=== PATIENT | male | born 1940 | race Caucasian/White ===

== ENCOUNTER → 2016-09-24 12:01 | Outpatient (CLI) | payer MEDICARE, OTHER ==
[2015-03-14 09:16] VITALS: BMI 27.2
[~2016-09-24 12:01] MED LIST: ALDACTONE25 MG PO; ALEVE220 MG PO; BAYER CHEWABLE81 MG PO; CARDIZEM 90 MG90 MG PO; COLACE100 MG PO; CORDARONE200 MG PO; COREG 3.1253.125 MG NG; CRANBERRY475 MG; CRANBERRY475 MG PO; FLOMAX0.4 MG PO; HEMOCYTE PLUS C1 CAP PO; HYDROCHLOROTH12.5 M1 PO; HYDROCODONE-APA1 TAB PO; K-DUR20 MEQ PO; LASIX20 MG PO; LASIX40 MG PO; LEXAPRO10 MG PO; LISINOPRIL10 MG PO; MELATONIN 3 MG1 TAB PO; NIASPAN500 MG PO; NORVASC10 MG PO; NORVASC5 MG PO; PACERONE400 MG PO; ROBAXIN500 MG PO; RYTHMOL SR225 MG PO; SENNA8.6 MG PO; SYNTHROID50 MCG PO; ULTRAM50 MG PO; VITAMIN B-122500 MCG PO; XARELTO20 MG PO
== END | disposition home or self-care (01) ==
LOC: D.RAD 08:45
DX: J90 Pleural effusion, not elsewhere classified (principal)

== ENCOUNTER → 2019-03-28 13:10 | Outpatient (CLI) | payer MEDICARE, OTHER ==
[2015-03-14 09:16] VITALS: BMI 27.2
--- NOTE | 2019-03-31 09:07 | EC ---
PATIENT:LULA CRAWFORD DATE OF SERVICE: 03/28/19 SEX: M MEDICAL RECORD: [id number] DATE OF : 36 LOCATION:[facility] AGE OF PATIENT: 79 ADMISSION DATE: 03/28/19 REFERRING PHYSICIAN: INTERPRETING PHYSICIAN: JOEY MICHELLE MD ECHOCARDIOGRAM REPORT ECHO CHARGES 4 ECHO COMPLETE Date: 03/28/19 CLINICAL DIAGNOSIS: HX OF CARDIOMYOPATHY,AORTIC AND MITRAL REGURG HX CABG ECHOCARDIOGRAPHIC MEASUREMENTS (adult normal given) AC root (d.<3.7cm) 3.7 cm LV Septum d (<1.2 cm> 1.4 cm Valve Excursion 1.9 cm LV Septum (systole) 1.4 cm Left Atria (s.<4.0cm> 4.9 cm LVPW d(<1.2cm) 1.4 cm RV (d.<2.3cm) 3.9 cm LVPW (sytole) 1.7 cm LV diastole(<5.6CM) 5.9 cm MV E-F(>70mm/sec) cm LV systole 4.1 cm LVOT Diameter 1.8 cm MV exc.(>10mm) 1.8 cm Est.ejection fraction (50-75%) % DOPPLER: LVIT cm/sec A 90.0 cm/sec E 40.0 cm/sec LA cm/sec RVSP 35 mmHg LVOT 103 cm/sec AOP1/2T 857 m/s Asc. Ao 179 cm/sec RVOT 85 cm/sec RA cm/sec PA 91 cm/sec AV Gradient Peak 13.47mmHg AV Mean 6.23 mmHg AV Area 2.1 cm MV Gradient Peak 3.59 mmHg MV Mean 1.37 mmHg MV Area cm COMMENTS: Web Content Director: 2 DEEPAK ENGLISH Professor Criminal Justice: 3 Dr. Dodd TAPE# PACS Pericardial Effusion N DATE OF SERVICE: Adequate 2D, color flow, spectral Doppler, and M-mode. LVH is present. LV internal dimension is normal. Wall motion is normal. EF is greater than or equal to 55%. Aortic valve is tricuspid. No evidence of stenosis by Doppler interrogation. Mild AI by color flow imaging. Left atrium is dilated at 4.9 cm. Mitral valve shows no prolapse. Mild MR. Right-sided chambers are grossly normal. Mild TR. ECHOCARDIOGRAM REPORT [id number] LULA CRAWFORD TRANSINT:[id number] Voice Confirmation ID: [id number] DOCUMENT ID: [id number] JOEY MICHELLE MD at 0907 CC: [id number] DICTATION DATE: 03/30/19 1316 STENOTYPE MACHINE OPERATOR: 03/30/19 1355 DEP CLI 03/28/19 [place] [id number] [place] [id number]
== END | disposition home or self-care (01) ==
LOC: D.HCCECHO 13:10
PROVIDERS: ATTEND Internal Medicine Interventional Cardiology
DX: I42.9 Cardiomyopathy, unspecified (principal)

== ENCOUNTER → 2019-09-18 09:33 | Outpatient (CLI) | payer MEDICARE, OTHER ==
[2015-03-14 09:16] VITALS: BMI 27.2
[2019-09-18 10:10] LABS: CREATININE - SERUM 1.7 mg/dL (0.6-1.3)
== END | disposition home or self-care (01) ==
LOC: D.LAB 09:33 → D.CT 10:30
PROVIDERS: ATTEND Internal Medicine Cardiovascular Disease
DX: I71.4 Abdominal aortic aneurysm, without rupture (principal)

== ENCOUNTER → 2020-01-25 08:45 | Outpatient (CLI) | payer MEDICARE, OTHER ==
[2015-03-14 09:16] VITALS: BMI 27.2
--- NOTE | 2020-01-26 08:19 | EC ---
PATIENT:LULA CRAWFORD DATE OF SERVICE: 01/25/20 SEX: M MEDICAL RECORD: [id number] DATE OF : 36 [facility] AGE OF PATIENT: 79 ADMISSION DATE: 01/25/20 REFERRING PHYSICIAN: INTERPRETING PHYSICIAN: JOEY MICHELLE MD ECHOCARDIOGRAM REPORT ECHO CHARGES 4 ECHO COMPLETE Date: 01/25/20 CLINICAL DIAGNOSIS: AFIB/HEART MURMUR/ANGINA HX OF AI/MR ECHOCARDIOGRAPHIC MEASUREMENTS (adult normal given) AC root (d.<3.7cm) 4.0 cm LV Septum d (<1.2 cm> 1.9 cm Valve Excursion 1.8 cm LV Septum (systole) 2.1 cm Left Atria (s.<4.0cm> 4.7 cm LVPW d(<1.2cm) 1.4 cm RV (d.<2.3cm) 3.5 cm LVPW (sytole) 2.0 cm LV diastole(<5.6CM) 6.2 cm MV E-F(>70mm/sec) cm LV systole 3.1 cm LVOT Diameter 1.9 cm MV exc.(>10mm) 2.0 cm Est.ejection fraction (50-75%) % DOPPLER: LVIT cm/sec A 76.0 cm/sec E 54.0 cm/sec LA cm/sec RVSP 32 mmHg LVOT 107 cm/sec AOP1/2T m/s Asc. Ao 226 cm/sec RVOT 80 cm/sec RA cm/sec PA 100 cm/sec AV Gradient Peak 20.47mmHg AV Mean 12.06mmHg AV Area 1.4 cm MV Gradient Peak 4.15 mmHg MV Mean 1.11 mmHg MV Area cm COMMENTS: Um Specialist: 2 DEEPAK ENGLISH Director Market Intelligence: 3 Dr. Dodd TAPE# PACS Pericardial Effusion N DATE OF SERVICE: Adequate 2D, color flow imaging, spectral Doppler, and M-Mode. LVH is present. LV internal dimension is normal. Wall motion is normal. EF is greater than or equal to 55%. Aortic valve is sclerotic. No evidence of stenosis by Doppler interrogation. Left atrium is dilated at 4.7 cm. Mitral valve shows no prolapse. Mild MR. Right-sided chambers are grossly normal. Mild TR. ECHOCARDIOGRAM REPORT [id number] LULA CRAWFORD TRANSINT:[id number] Voice Confirmation ID: [id number] DOCUMENT ID: [id number] JOEY MICHELLE MD at 0819 CC: [id number] DICTATION DATE: 01/25/20 1515 DIE TURNER: 01/25/20 2030 DEP CLI 01/25/20 [place] [id number] [place] [id number]
== END | disposition home or self-care (01) ==
LOC: D.HCCECHO 08:45
PROVIDERS: ATTEND Internal Medicine Cardiovascular Disease
DX: I25.10 Atherosclerotic heart disease of native coronary artery without angina pectoris (principal); I48.91 Unspecified atrial fibrillation

== ENCOUNTER 2020-02-07 06:54 | Day surgery (SDC) | payer MEDICARE, OTHER ==
[~2020-02-07] VITALS: Ht 195.6 cm; Wt 106.5 kg
--- NOTE | ~2020-02-07 | HEMODYNAMI ---
PATIENT:LULA CRAWFORD MEDICAL RECORD: [id number] : 36 LOCATION:D.CAT ADMISSION DATE: 02/07/20 Generatedon:02/07/20209:13 Patient name: LULA CRAWFORD Patient #: [id number] SSN: [id number] : 1940 Date of study: 02/07/2020 Page: Of Hemodynamic Procedure Report Patient Data Patient Demographics Procedure consent was obtained First Name: LULA Gender: Male Last Name: YVETTE : 1940 Middle Initial: W Age: 79 year(s) Patient #: [id number] Race: SSN: [id number] Additional ID: [id number] Contact details Address: [address] [place] [address] State: [place] City: [place] Zip code: [address] Past Medical History Performed procedures and imaging results Date Procedure Procedure Results Comments 01/25/2020 Stress testing Positive->Intermediate with SPECT MPI risk Allergies: No known allergies Admission Admission Data Admission Date: 02/07/2020 Admission Time: 6:54 Arrival Date: 02/07/2020 Arrival Time: 0:00 Admit Source: Other Insurance Payor: Medicare [facility] #: [id number] Height (in.): 77 BSA: 2.39 (m2) Height (cm.): 195.58 BMI: 27.83 (kg/m2) Weight (lbs.): 234.68 Weight (kg.): 106.45 Lab Results Lab Result Date: 02/07/2020 Lab Result Time: 0:00 Biochemistry Name Units Result Min Max BUN mg/dl 32 --(----)-* 7 18 Creatinine mg/dl 1.7 --(----)-* 0.6 1.3 eGFR ml/min 41 *-(----)-- 90 120 NONAFRICAN CBC Name Units Result Min Max Hematocrit % 40.8 -*(----)-- 42 54 Hemoglobin g/dl 13 -*(----)-- 13.5 17.5 Procedure Procedure Types Cath Procedure Diagnostic Procedure [facility] w/Coronaries Sedation Charges Moderate Sedation up to 15 minutes Procedure Description Procedure Date Procedure Date: 02/07/2020 Procedure Start Time: 8:53 Procedure End Time: 9:12 Procedure Staff Name Function Tristin Bird MD Performing Physician Cooper Archibald RN Nurse Narinder Aguilar RT Scrub Bryanna Smiley RT Monitor Procedure Data Cath Procedure Fluoroscopy Diagnostic fluoroscopy Total fluoroscopy Time: 4.1 time: 4.1 min min Diagnostic fluoroscopy Total fluoroscopy dose: 603 dose: 603 mGy mGy Contrast Material Contrast Material Type Amount (ml) Isovue 370 114 Entry Location Entry Primary Successful Side Size Upsize Upsize Entry Closure Succes sful Closure Location (Fr) 1 (Fr) 2 (Fr) Remarks Device Remarks Femoral Right 5 Fr Exoseal artery Estimated blood loss: 5 ml Diagnostic catheters Device Type Used For End Catheter Placement MULTIPACK JL 4.0 5Fr Procedure catheter DIAGNOSTIC JL 5 5Fr Procedure catheter ([id number]) MULTIPACK 3DRC 5Fr Procedure catheter DIAGNOSTIC IM 5Fr Procedure catheter ([id number]) MULTIPACK Pigtail 5 Fr Procedure catheter Procedure Complications No complications Procedure Medications Medication Administration Route Dosage Oxygen etCO2 Nasal cannula 2 l/min Lidocaine 2% added to field 20 Heparin Flush Bag added to field 2 bags (1000units/500ml NS) 0.9% NaCl I.V. 100 ml/hr Versed I.V. 2 mg Fentanyl I.V. 50 mcg Hemodynamics Rest BSA: 2.39 (m2) HGB: 13 (g/dl) O2 Consumption: Estimated: 245.57 (ml/min) O2 Cons umption indexed: Estimated:102.75 (ml/min/m) Heart Rate: 40 (bpm) Pressure Samples Time Site Value (mmHg) Purpose Heart Use Rate(bpm) 9:06 LV 101/4,9 Snapshot 56 Gradients Valve Time Site Site Mean SEP/DFP Peak To Heart Use 1 2 (mmHg) (sec/min) Peak Rate (mmHg) (bpm) Aortic 9:07 LV AO 52 Snapshots Pre Cath Intra NCS Post Cath Vital Signs Time Heart Resp SPO2 etCO2 NIBP Rhythm Pain Sedation Rate (ipm) (%) (mmHg) (mmHg) Status Level (bpm) 8:33:41 42 15 97 0 112/54(95) NSR 0 (11) 10(A) , No pain 8:37:55 47 19 98 0 114/62(94) NSR 0 (11) 10(A) , No pain 8:42:07 45 19 96 0 114/60(91) NSR 0 (11) 10(A) , No pain 8:46:23 45 17 95 22.4 117/59(93) NSR 0 (11) 10(A) , No pain 8:50:39 48 15 95 0.7 108/58(88) NSR 0 (11) 10(A) , No pain 8:54:47 47 13 93 2.2 100/55(83) NSR 0 (11) 9(A) , No pain 8:58:56 48 13 92 0.7 101/55(80) NSR 0 (11) 9(A) , No pain 9:03:05 52 14 93 1.4 102/51(81) NSR 0 (11) 9(A) , No pain 9:07:18 53 13 95 5.9 104/48(83) NSR 0 (11) 10(A) , No pain Medications Time Medication Route Dose Verified Delivered Reason Notes Effe ctiveness by by 8:34:44 Oxygen etCO2 2 Tristin Gamboa used for Nasal l/min [facility] Sulaiman Archibald RN procedure cannula 8:34:51 Lidocaine 2% added 20ml Tristin Crow for local to vial [facility] anesthetic field MD WELLS 8:34:58 Heparin Flush added 2 Tristin Tristin used for Bag to bags [facility] procedure (1000units/500ml field MD WELLS NS) 8:35:07 0.9% NaCl I.V. 100 Tristin Gamboa Per ml/hr [facility] Sulaiman Archibald RN physician 8:52:14 Versed I.V. 2 mg Tristin Gamboa for [facility] Sulaiman Archibald RN sedation 8:52:21 Fentanyl I.V. 50 Tristin Gamboa for [facility] Sulaiman Archibald RN sedation Procedure Log Time Note 8:05:56 Informed consent obtained and on chart 8:06:47 Lab Result : Hematocrit 40.8 % 8:06:47 Lab Result : Hemoglobin 13 g/dl 8:08:14 Arrival Date: 02/07/2020 12:00:00 AM 8:08:15 Admit Source: Other 8:08:18 Patient Height : 77 inches 8:08:23 Patient Weight : 234.68 lbs 8:08:33 Insurance Payor : Medicare 8:09:00 Diagnostic Cath Status : Elective 8:09:35 Patient allergic to No known allergies 8:09:41 ACC Patient presents with Stable Angina CCS Anginal Class 2--Slight limitation of ordinary activity. 8:09:44 Procedure Status Elective Heart Cath (OP). 8:09:46 Time tracking: Regular hours (M-F 7:00 - 5:00) 8:09:51 Plan of Care:Hemodynamics will remain stable., Cardiac rhythm will remain stable., Comfort level will be maintained., Respiratory function will remain adequate., Patient/ family verbilizes understanding of procedure., Procedure tolerated without complication., Recovers from procedure without complications.. 8:10:01 H&P Date Dictated: 01/23/2020 Within 30 days and on chart.. 8:10:01 Pre-procedure instructions explained to patient. 8:10:02 Pre-op teaching completed and patient verbalized understanding. 8:10:04 Family unavailable. 8:10:06 Patient NPO since Midnight. 8:10:11 Lab results completed and on chart. 8:10:31 Stress Test: yes; abnormal ANTERIOR AND APICAL 8:10:34 Alarms reviewed by R. N. 8:10:34 Sharps counted by scrub and verified by R.N. 8:17:23 Cooper Archibald RN sent for patient. Start room use. 8:18:39 Lab Result : eGFR NONAFRICAN 41 ml/min 8:18:39 Lab Result : Creatinine 1.7 mg/dl 8:18:39 Lab Result : BUN 32 mg/dl 8:25:30 Patient received from Pre/Post Procedure Room to CCL 1 Alert and oriented. Tansferred to table in Supine position. 8:26:38 Warm blankets applied, and gil hugger turned on for patient comfort. 8:26:39 Correct patient and procedure confirmed by team. 8:27:49 Previous problem with sedation/anesthesia? No ? 8:27:54 Snore? Yes 8:27:55 Sleep apnea? No 8:27:56 Deviated septum? No 8:27:58 Opens mouth fully? Yes 8:27:59 Sticks out tongue? Yes 8:28:01 Airway obstruction? No ? 8:28:25 Dentures? No ? 8:29:57 Pre procedure: right dorsailis pedis pulse 1+ Palpable, but thready & weak; easily obliterated 8:30:12 Patient pain scale 0/10 ?. 8:30:24 IV patent on arrival in left forearm with 0.9% NaCl at [facility]. 8:32:10 Right groin area was prepped with chlora-prep and draped in sterile fashion 8:32:19 Is the patient allergic to Iodine/contrast media? No. 8:32:21 Is patient on blood thinner?No 8:32:22 Patient diabetic? No. 8:32:25 ECG and BP/O2 sat monitors applied to patient. 8:32:28 Vital chart was started 8:32:30 Baseline sample Acquired. 8:32:34 Rhythm: sinus bradycardia 8:32:39 Full Disclosure recording started 8:34:20 Use device set Femoral Dx 8:34:21 ACIST Syringe (65885) opened to sterile field. 8:34:23 Bag Decanter (2002S) opened to sterile field. 8:34:23 Medline Cath Pack ([id number]) opened to sterile field. 8:34:26 ACIST Hand Control (06712) opened to sterile field. 8:34:27 ACIST Manifold (61701) opened to sterile field. 8:34:28 DIAGNOSTIC Multipack 5Fr catheter set ([id number]) opened to sterile field. 8:34:29 SHEATH 5FR Nisswa (XSZ123) opened to sterile field. 8:34:29 EMERALD Guide Wire (197-371) opened to sterile field. 8:34:44 Oxygen 2 l/min etCO2 Nasal cannula was administered by Cooper Archibald RN; used for procedure; Verbal order read back and verified. 8:34:51 Lidocaine 2% 20ml vial added to field was administered by Tristin Bird MD; for local anesthetic; Verbal order read back and verified. 8:34:58 Heparin Flush Bag (1000units/500ml NS) 2 bags added to field was administered by Tristin Bird MD; used for procedure; Verbal order read back and verified. 8:35:07 0.9% NaCl 100 ml/hr I.V. was administered by Cooper Archibald RN; Per physician; Verbal order read back and verified. 8:49:43 --------ALL STOP TIME OUT------ 8:49:44 Final Timeout: patient, procedure, and site verified with staff and physician. All members of the team are in agreement. 8:49:46 Right groin site verified by team. 8:49:50 Fire Safety Assessment: A--An alcohol-based skin anteseptic being used preoperatively., C--Open oxygen or nitrous oxide is being used., D--An ESU, laser, or fiber-optic light is being used. 8:49:58 Physical assessment completed. ASA score P 2 - A patient with mild systemic disease as per Tristin Bird MD. 8:50:11 3b) 30-44 Moderately reduced kidney function. 8:50:15 Maximum allowable contrast dose (3.7 X eGFR X 0.75)114 ml. 8:50:20 Sedation plan: IV Moderate Sedation Medication:Versed, Fentanyl 8:52:14 Versed 2 mg I.V. was administered by Cooper Archibald RN; for sedation; Verbal order read back and verified. 8:52:21 Fentanyl 50 mcg I.V. was administered by Cooper Archibald RN; for sedation; Verbal order read back and verified. 8:53:20 Procedure started. 8:53:25 Local anesthetic to right femoral artery with Lidocaine 2% by Tristin Bird MD.INITIAL ACCESS ONLY 8:53:49 A 5 Fr sheath was inserted into the Right Femoral artery 8:54:39 A MULTIPACK JL 4.0 5Fr catheter was advanced over the wire and used for Procedure. 8:55:25 Injector settings: Ml/sec: 3, Volume: 6, 8:57:11 CATHETER REMOVED UNABLE TO ENGAGE IN LCA. 8:57:25 A DIAGNOSTIC JL 5 5Fr catheter ([id number]) was advanced over the wire and used for Procedure. 8:58:05 LCA angiography performed. 8:58:07 Injector settings: Ml/sec: 3, Volume: 6, 8:58:52 Catheter removed. 8:59:29 A MULTIPACK 3DRC 5Fr catheter was advanced over the wire and used for Procedure. 9:00:00 RCA angiography performed. 9:00:03 Injector settings: Ml/sec: 3, Volume: 6, 9:00:45 SVG to Circ angiography performed. 9:03:03 STANLEY to LAD angiography performed. 9:05:35 A DIAGNOSTIC IM 5Fr catheter ([id number]) was advanced over the wire and used for Procedure. 9:05:39 RCA angiography performed. 9:05:42 Injector settings: Ml/sec: 3, Volume: 6, 9:05:48 Catheter removed. 9:05:53 A MULTIPACK Pigtail 5 Fr catheter was advanced over the wire and used for Procedure. 9:05:57 LV gram done using RICHARD 9:06:48 LV hemodynamics recorded. 9:07:03 EF : 50 % 9:07:32 Aortic Root visualized 9:07:49 Catheter removed. 9:07:55 EXOSEAL 5Fr (EX500) opened to sterile field. 9:08:07 Sheath removed intact; hemostasis achieved with Exoseal to the Right Femoral artery. 9:08:10 Procedure ended.(Physican Out) 9:08:40 Fluoroscopy time 04.10 minutes. 9:08:45 Fluoroscopy dose: 603 mGy 9:08:45 Flurop Dose total: 603 9:08:51 Dose Area Product 74408 mGy/cm. 9:08:55 Contrast amount:Isovue 370 114ml. 9:08:58 Maximum allowable dose exceeded? No. 9:08:59 Sharps counted by scrub and verified by R.N. 9:09:04 Post-op/insertion site Right Femoral artery dressed using a 4 x 4 and Tegaderm. 9:09:10 Post right femoral artery:stable, soft, clean and dry 9:09:41 Post Procedure Pulses reassessed and unchanged 9:09:43 Post procedure: right dorsailis pedis pulse 2+ Normal; easily identifiable; not easily obliterated. 9:09:47 Post-procedure physical assessment completed. ASA score P 2 - A patient with mild systemic disease as per Tristin Bird MD. 9:09:50 Post procedure rhythm: unchanged. 9:09:53 Estimated blood loss: 5 ml 9:09:54 Post procedure instruction explained to patient.Patient verbalizes understanding. 9:09:55 Patient needs reinforcement of post procedure teaching. 9:10:10 Procedure type changed to Cath procedure, Diagnostic procedure, LHC, LHC w/Coronaries, Sedation Charges, Moderate Sedation up to 15 minutes 9:10:26 Procedure and supply charges have been captured, reviewed, submitted and are correct. 9:10:30 Procedure Complication : No complications 9:10:33 Vital chart was stopped 9:10:35 [facility] Findings: mild to moderate CAD (<70%) 9:10:37 Operative report dictated upon procedure completion. 9:10:37 See physician's report for complete and final results. 9:10:40 Report given to Pre/Post Procedure Room. 9:10:43 Patient transfered to Pre/Post Procedure Room with Stretcher. 9:12:08 Procedure ended. 9:12:08 Full Disclosure recording stopped 9:12:30 End room use (Document Last) 9:12:53 End room use (Document Last) 9:13:21 End room use (Document Last) Device Usage Item Name Manufacture Quantity Catalog Hospital Part Current Minimal L ot# / Number Charge Number Stock Stock Serial# Code ACIST Acist 1 17511 [id number] 890729 [id number] 20 Syringe Medical (28056) Systems Inc Bag Microtek 1 988532 68944 671501 5 Decanter Medical Inc. () Medline Medline 1 [id number] 896288 48390 796026 5 Cath Pack ([id number]) ACIST Hand Acist 1 02406 208596 935932 541141 5 Control Medical (78427) Systems Inc ACIST Acist 1 60499 761434 289669 962536 5 Manifold Medical (41942) Systems Inc DIAGNOSTIC Cardinal 1 AZ8663 378438 71675 790548 30 Multipack Health 5Fr catheter set (QW7710) SHEATH 5FR Terumo 1 NFY646 730254 377903 528171 5 Nisswa (KWR776) EMERALD Cardinal 1 502-455 759175 917071 748141 5 Guide Wire Health (502-455) MULTIPACK Cardinal 1 342500 5 JL 4.0 5Fr Health catheter DIAGNOSTIC Cardinal 1 [id number] 528739 432922 460693 5 JL 5 5Fr Health catheter (156824T) MULTIPACK Cardinal 1 700437 5 3DRC 5Fr Health catheter DIAGNOSTIC Cardinal 1 [id number] 866162 063291 582050 5 IM 5Fr Health catheter ([id number]) MULTIPACK Cardinal 1 105892 5 Pigtail 5 Health Fr catheter EXOSEAL 5Fr Cardinal 1 EX500 021233 142357 226246 10 (EX500) Health Signature Audit [place] Stage Time Signature Unsigned Intra-Procedure 02/07/2020 Bryanna Smiley 9:12:53 AM RT(R) Intra-Procedure 02/07/2020 Cooper Archibald RN 9:13:21 AM Intra-Procedure 02/07/2020 Tristin Parisi 9:13:49 AM Sulaiman WELLS [facility] [address] [place] [id number]
[2020-02-07] MEDS ORDERED: PROSCAR5 MG PO (07:18)
[2020-02-07 07:30] VITALS: BP 132/65; Ht 195.6 cm; Wt 106.5 kg
[2020-02-07 07:49] LABS: BASOPHILS 0.3 % (0-2); EOSINOPHILS 1.5 % (0-7); HEMATOCRIT 40.8 % (42.0-54.0); IMMATURE GRANULOCYTES 0.2 % (0-5); LYMPHOCYTES 20.9 % (15-50); MCH 26.7 pg (26.0-34.0); MCHC 31.9 g/dL (31.0-37.0); MCV 83.8 fL (80.0-100.0); MEAN PLATELET VOLUME 9.1 fL (7.4-10.4); MONOCYTES 8.5 % (2-11); NEUTROPHILS 68.6 % (40-80); PLATELET COUNT 205 10x3/uL (130-400); RBC 4.87 10x6/uL (4.20-6.10); RDW 14.5 % (11.5-14.5); WBC 6.1 10x3/uL (4.8-10.8)
[2020-02-07 08:08] LABS: ANION GAP 11.5 mmol/L (8-16); CALCIUM 8.6 mg/dL (8.5-10.1); CARBON DIOXIDE 25.7 mmol/L (21.0-32.0); CHOL - HDL RATIO 4.1 ratio (2.3-4.9); CREATININE - SERUM 1.7 mg/dL (0.6-1.3); LDL-HDL RATIO 2.6 ratio (1.5-3.5); POTASSIUM - SERUM 4.2 mmol/L (3.5-5.1)
--- NOTE | 2020-02-07 09:30 | NUR ---
PT RECEIVED BACK TO ROOM VIA STRETCHER FOR RECOVERY. PT AWAKE BUT DROWSY, DENIES PAIN OR DISCOMFORT. IV PATENT INFUSING VIA ORDERS TO L ARM. PT PLACED ON CARDIAC MONITORS AND O2 VIA NC AT 2L. HR ASHLEE, RATE 47, BP 117/53, RR 17, SAT 98, RR 14. R GROIN W 5FR EXOCELE, DRESSING CDI NO S/S HEMATOMA OR BLEEDING NOTED. LEG PINK AND WARM, PEDAL PULSES PALPALBE. PT INSTRUCTED NOT TO RAISE HEAD OFF PILLOW OR MOVE R LEG, HE VERBALIZED UNDERSTANDING. CALL LIGHT IN REACH, AT BS
--- NOTE | 2020-02-07 10:00 | NUR ---
PT RESTING W/O COMPLAINTS. R GROIN SOFT, DRESSING REMAINS CDI NO S/S HEMATOMA OR BLEEDING NOTED. VSS. CALL LIGHT IN REACH, AT BS.
--- NOTE | 2020-02-07 10:30 | NUR ---
R GROIN SOFT, NO S/S HEMATOMA. HOB ELEVATED. SANDWICH AND DRINK SERVED. VSS, CALL LIGHT IN REACH
--- NOTE | 2020-02-07 11:10 | NUR ---
R GROIN SOFT, DRESSING REMAINS CDI NO S/S HEMATOMA NOTED. DISCHARGE INSTRUCTIONS REVIEWED W PT AND , BOTH VERBALIZED UNDERSTANDING. IV REMOVED W CATH INTACT, MONITORS REMOVED. PT UP TO DRESS FOR DISCHARGE
--- NOTE | 2020-02-07 11:18 | NUR ---
PT AMBULATED TO BR, VOIDING W/O DIFFICULITY
--- NOTE | 2020-02-07 11:23 | NUR ---
PT DISCHARGED VIA WC TO WAITING IN PRIVATE VEHICLE. PT HAS ALL BELONGINGS AND DISCHARGE PAPERWORK
--- NOTE | 2020-02-08 08:21 | OP ---
PATIENT NAME: LULA CRAWFORD MEDICAL RECORD: [id number] :36 LOCATION:D.CAT ADMISSION DATE: SURGEON: JOEY MICHELLE MD DATE OF OPERATION: 02/07/2020 PROCEDURE: Left heart catheterization, selective coronary angiography, plus bypass graft, plus aortic root injection, right femoral artery approach. CATHETERS: A 5-Belarusian sheath, 5/4 left and right Mira, 5/4 pig. The procedure was well tolerated. The patient returned to crooks. Sheath removed. ExoSeal device was placed. FINDINGS: Left ventriculography in 30-degree RICHARD view; normal wall motion and normal systolic function, 50%. CORONARY ANATOMY: LEFT MAIN: Left main is free of disease. LAD: Fills for a short period of time, totally occluded. CIRCUMFLEX: Short period of time, totally occluded. RIGHT CORONARY ARTERY: Short period of time, totally occluded. BYPASS GRAFTS: 1. STANLEY to LAD is widely patent throughout its course without evidence of post-anastomotic stenosis. 2. Saphenous vein graft to circ and OM, skip graft, though widely patent throughout its course without evidence of post-anastomotic stenosis. 3. Saphenous vein graft to the right; widely patent throughout its course without evidence of post-anastomotic stenosis. Aortic root injection was done to locate bypass grafts as well as assess any AR insufficiency. This shows on the above-mentioned bypass graft and only mild aortic root insufficiency. TRANSINT:[id number] Voice Confirmation ID: [id number] DOCUMENT ID: [id number] JOEY MICHELLE MD at 0821 CC: [id number] DICTATION DATE: 02/07/20915 WHEEL TRUER: 02/07/20 1503 [facility] 02/07/20 [facility] [address] [place] [address]
== END 2020-02-07 11:23 | disposition home or self-care (01) ==
LOC: D.CATH 06:54
PROVIDERS: ATTEND Internal Medicine Interventional Cardiology
DX: R07.9 Chest pain, unspecified (principal); R60.9 Edema, unspecified; I25.119 Atherosclerotic heart disease of native coronary artery with unspecified angina pectoris; E78.5 Hyperlipidemia, unspecified; I48.91 Unspecified atrial fibrillation; R01.1 Cardiac murmur, unspecified